=== PATIENT | male | born 1940 | race Caucasian/White ===

== ENCOUNTER 2021-03-26 09:41 | Outpatient (CLI) | payer MEDICARE | END 2021-03-26 09:42 | disposition home or self-care (01) | LOC: CSHCT 09:41 | PROVIDERS: ATTEND Internal Medicine Cardiovascular Disease | DX: Z01.810 Encounter for preprocedural cardiovascular examination (principal); I48.0 Paroxysmal atrial fibrillation; R23.3 Spontaneous ecchymoses; R91.8 Other nonspecific abnormal finding of lung field | CPT/HCPCS: 71275 ==

== ENCOUNTER 2024-07-18 17:30 | Outpatient (CLI) | payer MEDICARE | END 2024-07-18 17:31 | disposition home or self-care (01) | LOC: CSHSLEEP 17:30 | PROVIDERS: ATTEND Internal Medicine Critical Care Medicine | DX: R06.3 Periodic breathing (principal); G45.9 Transient cerebral ischemic attack, unspecified; J44.9 Chronic obstructive pulmonary disease, unspecified; G47.61 Periodic limb movement disorder | CPT/HCPCS: 95811 ==